=== PATIENT | female | born 1965 | race Caucasian/White ===

== ENCOUNTER 2016-08-27 14:41 | Emergency (ER) | payer BC ==
--- NOTE | ~2016-08-27 | ER ---
PATIENT'S NAME: JAY SIDDIQUI AGE: 51 Y [address] ROOM: [place] [address] LOCATION: [facility] ADMIT DATE: 08/27/2016 ER/Outpatient Report DISCHARGE DATE: 08/27/2016 FAMILY PHYSICIAN: Chris Sánchez MD ATTENDING PHYSICIAN: Artie Rosas CHIEF COMPLAINT: Syncope. HISTORY OF PRESENT ILLNESS: The patient was at [employer] today when she had a syncopal episode. She remembers going to [employer] and then remembers waking up in the ambulance. Bystanders witnessed loss of consciousness and collapse, and the patient fell and struck her head on the floor. The exact time of unconsciousness is unknown, although EMS reports that she was awake when they found her. She had no significant abnormals, and her blood sugar on arrival was 82. The patient denies any other acute medical issues. She doctors primarily with Dr. Sánchez. She did give blood today. She was given blood multiple times in the past with no issues and was feeling good but did not eat afterwards and had not had anything to drink. The time course was about an hour after giving blood. PAST MEDICAL HISTORY: Documented on the record and reviewed by me. SOCIAL HISTORY: Documented on the record and reviewed by me. MEDICATIONS: Documented on the record and reviewed by me. ALLERGIES: DOCUMENTED ON THE RECORD AND REVIEWED BY ME. REVIEW OF SYSTEMS: All systems were reviewed and negative except as noted in the HPI. PHYSICAL EXAMINATION: VITAL SIGNS: Blood pressure 135/65, pulse 84, respiratory rate is 18, temperature 96.8, SpO2 is 99% on room air. Pain is rated at 3/10 now. GENERAL: An age appropriate female, in no obvious pain or distress. Resting comfortably in exam table. NEURO: The patient is awake and alert. She is oriented x3. There are no focal deficits. No asymmetry on exam. HEENT: The patient is grossly normocephalic. There is a large contusion, PATIENT'S NAME: JAY SIDDIQUI AGE: 51 Y [address] ROOM: [place] [address] LOCATION: [facility] ADMIT DATE: 08/27/2016 ER/Outpatient Report DISCHARGE DATE: 08/27/2016 FAMILY PHYSICIAN: Chris Sánchez MD ATTENDING PHYSICIAN: Artie Rosas measuring approximately 8 cm in diameter over the right frontal region below the scalp line. She has no active bleeding and no skin breakdown. The eyes are PERRL. The oropharynx is clear. Extraocular movements are intact. NECK: Supple. Trachea is midline. CHEST: Heart is regular rate and rhythm with no murmurs. LUNGS: Clear to auscultation bilateral with no rhonchi, wheezes, or rales. ABDOMEN: Soft, nontender, and nondistended. No rebound or guarding. BACK: Nontender to palpation throughout. No paraspinal tenderness. EXTREMITIES: Warm and well perfused with no deformities. No focal tenderness. No crepitus of the major joints. SKIN: Warm and dry. It is intact with no significant breakdown. LABORATORY DATA AND X-RAYS: Head CT was reported as normal per Radiology. Labs: Sodium 143, potassium 3.8, chloride is 109, CO2 is 27, BUN is 18, creatinine 0.9. GFR is greater than 60. LFTs are within normal limits. Free T4 0.9. TSH is 5.19. WBCs are 9.6, hemoglobin 11.2, platelets of 286. INR is 1.0. Lactate is 1.9. EKG is sinus rhythm, ventricular rate of 80 with otherwise normal intervals and axis. No dysrhythmia or ischemia appreciated. No comparison available. IMPRESSION: 1. Syncope. 2. Likely secondary to blood draw. 3. Secondary hypothyroidism with elevated TSH. Normal T4. 4. Forehead contusion. EMERGENCY DEPARTMENT COURSE: The patient was evaluated as above. At this time, I am attributing her syncopal event to her blood draw. There are no other obvious explanations and it would make sense. We gave her a total of 1 L of normal saline. She was feeling much better. She was not orthostatic. Head CT ruled out intracranial hemorrhage or fracture. EKG without dysrhythmia. Presentation is not consistent with significant thyroid disorder, though we did discover some abnormalities with TSH. I am recommending cognitive rest x48 hours for possible concussion as well as encouraging fluids. She should follow up with her primary care provider for the TSH abnormality. She remained otherwise stable and was ultimately discharged in good condition. ARTIE ROSAS MD PATIENT'S NAME: JAY SIDDIQUI AGE: 51 Y [address] ROOM: [place] [address] LOCATION: [facility] ADMIT DATE: 08/27/2016 ER/Outpatient Report DISCHARGE DATE: 08/27/2016 FAMILY PHYSICIAN: Chris Sánchez MD ATTENDING PHYSICIAN: Artie Rosas/[email or web address] /[id number] d: [id number] t: 08/28/16 0623, OUTPATIENT REPORT
[2016-08-27 15:01] LABS: BASOPHIL # 0.1 K/uL (0.0-0.2); BASOPHIL % 0.8 %; EOSINOPHIL # 0.1 K/uL (0.0-0.5); EOSINOPHIL % 1.4 %; HEMATOCRIT 33.9 % (33.0-46.0); HEMOGLOBIN 11.2 g/dL (10.0-15.0); IMMATURE GRANULOCYTE % 0.3 %; LYMPHOCYTE # 4.2 K/uL (0.8-4.0); LYMPHOCYTE % 43.4 %; MCH 30.7 pg (27.0-34.0); MCV 92.9 fl (83.0-98.0); MONOCYTE # 0.7 K/uL (0.0-1.0); MONOCYTE % 7.6 %; MPV 10.1 fl (9.4-12.4); NEUTROPHIL # (ANC) 4.5 K/uL (1.8-7.8); NEUTROPHIL % 46.5 %; NRBC % 0 /100WBC (0-0.00); PLATELET COUNT 286 K/uL (150-450); RBC 3.65 M/uL (3.50-5.50); RDW-CV 14.2 % (11.9-14.6); WBC 9.6 K/uL (4.0-11.0)
[2016-08-27 15:16] LABS: PTT 23 SECONDS (25-32)
[2016-08-27 15:24] LABS: ALBUMIN 3.5 gm/dL (3.5-5.0); ALK PHOS 64 IU/L (33-138); ALT 19 IU/L (12-78); ANION GAP 10.8 (10.0-19.0); AST 12 IU/L (10-40); BLOOD UREA NITROGEN 18 mg/dL (6-24); CALCIUM 8.1 mg/dL (8.5-10.5); CHLORIDE 109 mMol/L (96-110); CO2 27 mMol/L (22-32); CREATININE 0.9 mg/dL (0.5-1.1); ESTIMATED GFR (MDRD EQUATION) > 60; POTASSIUM 3.8 mMol/L (3.7-5.1); SODIUM 143 mMol/L (135-145); TOTAL BILIRUBIN 0.2 mg/dL (0.0-1.5); TOTAL PROTEIN 6.3 g/dL (6.0-8.4)
== END 2016-08-27 15:47 | disposition disaster alternative care site (69) ==
LOC: GMED 14:41
PROVIDERS: Emergency Medicine
DX: R55 Syncope and collapse (principal); S00.83XA Contusion of other part of head, initial encounter; E03.8 Other specified hypothyroidism; E05.90 Thyrotoxicosis, unspecified without thyrotoxic crisis or storm; Z79.899 Other long term (current) drug therapy; W13.3XXA Fall through floor, initial encounter

== ENCOUNTER → 2016-08-27 | Outpatient (CLI) | payer BC | END | disposition disaster alternative care site (69) | LOC: GAMB 14:22 | DX: R55 Syncope and collapse (principal); R51 Headache; Z79.899 Other long term (current) drug therapy | CPT/HCPCS: A0425; A0427; J3010; J7030 ==

== ENCOUNTER → 2016-09-17 | Outpatient (CLI) | payer BC | END | disposition disaster alternative care site (69) | LOC: GBCOE 11:53 | DX: Z12.31 Encounter for screening mammogram for malignant neoplasm of breast (principal) | CPT/HCPCS: G0202 ==

== ENCOUNTER → 2017-02-14 | Outpatient (CLI) | payer BC | LOC: GKIC 13:29 | DX: R51 Headache (principal) ==